=== PATIENT | female | born 1985 | race Caucasian/White ===

== ENCOUNTER 2017-02-11 11:38 | Emergency (ER) | payer OTHER ==
[~2017-02-11] VITALS: Ht 165.1 cm; Wt 68.0 kg
[~2017-02-11 11:38] MED LIST: CALNA PO; CEPHALEXIN250 MG/51 OR; CLEOCIN150 MG OR; CLINDAMYCIN150 MG OR; DEP0PROVERA IM; DEPO-PROVER150 MG/ML IM; FLEXERIL PO; FLEXERIL5 M1 PO; FOLIC ACID1 MG PO; HYDROCO/APAP1 TA8; LORTAB5 PO; NAPROSYN500 MG PO; NO MEDS; ORTHO-NOVUM1 TA1 OR; PEPCID20 MG PO; PERI-COLACE1 TAB PO; PREDNISONE20 MG OR; PROAIR HFA IN; TRAMADOL HCL50 MG PO; ULTRAM50 M1 OR; ULTRAM50 MG OR; ZOFRAN4 M1 OR; ZPAK PO
[2017-02-11] MEDS ORDERED: ULTRAM50 M1 PO (12:35)
[2017-02-11] MEDS ORDERED: CLEOCIN300 MG PO (12:35)
[2017-02-11 12:46] VITALS: BP 113/80
== END 2017-02-11 12:46 | disposition home or self-care (01) | DRG 159 ==
LOC: ED 11:38
DX: K04.7 Periapical abscess without sinus (principal); K08.89 Other specified disorders of teeth and supporting structures

== ENCOUNTER 2017-06-14 08:46 | Emergency (ER) | payer SELFPAY ==
[~2017-06-14] VITALS: Ht 165.1 cm; Wt 63.0 kg
[~2017-06-14 08:46] MED LIST changes: +CLEOCIN300 MG PO; +ULTRAM50 M1 PO
[2017-06-14] MEDS ORDERED: GABAPENTIN100 MG PO (09:01)
[2017-06-14] MEDS ORDERED: CELEBREX100 M1 PO (09:01)
[2017-06-14] MEDS ORDERED: ROBAXIN-750750 MG PO (09:01)
[2017-06-14 11:11] VITALS: BP 123/80
[2017-06-14] MEDS ORDERED: CYCLOBENZAPR5 MG PO (11:13)
[2017-06-14] MEDS ORDERED: MOTRIN400 MG PO (11:14)
== END 2017-06-14 11:18 | disposition home or self-care (01) | DRG 552 ==
LOC: ED 08:46
DX: M54.5 Low back pain (principal); M25.551 Pain in right hip; X50.0XXA Overexertion from strenuous movement or load, initial encounter; Y92.009 Unspecified place in unspecified non-institutional (private) residence as the place of occurrence of the external cause

== ENCOUNTER → 2018-06-14 | Outpatient (REF) | payer OTHER ==
[~2018-06-14] MED LIST changes: +CELEBREX100 M1 PO; +CYCLOBENZAPR5 MG PO; +GABAPENTIN100 MG PO; +MOTRIN400 MG PO; +ROBAXIN-750750 MG PO
[2018-06-14 08:57] LABS: HEMATOCRIT 38.6 % (37.0-47.0); HEMOGLOBIN 12.6 g/dl (12.0-16.0); IMMATURE GRANULOCYTES 0.5 % (0.0-5.0); MEAN CORPUSCULAR HGB 31.7 pG CALC (26.0-32.0); MEAN CORPUSCULAR HGB CONC 32.6 g/L CALC (32.0-36.0); NEUT# 5.39 thou/uL (2.00-7.15); RED BLOOD COUNT 3.98 mill/uL (4.20-5.60); RED CELL DISTRI WIDTH 12.8 % (11.5-15.5)
== END | disposition home or self-care (01) ==
LOC: ULTRASND 08:13 → DI 17:00
PROVIDERS: ATTEND Internal Medicine Cardiovascular Disease
DX: I20.8 Other forms of angina pectoris (principal); N83.202 Unspecified ovarian cyst, left side; N92.1 Excessive and frequent menstruation with irregular cycle

== ENCOUNTER 2018-07-09 07:18 | Emergency (ER) | payer OTHER ==
[~2018-07-09] VITALS: Ht 165.1 cm; Wt 65.9 kg
[2018-07-09 07:54] LABS: HEMATOCRIT 37.9 % (37.0-47.0); HEMOGLOBIN 12.3 g/dl (12.0-16.0); IMMATURE GRANULOCYTES 0.3 % (0.0-5.0); MEAN CELL VOLUME 96.7 fL CALC (80.0-100.0); MEAN CORPUSCULAR HGB 31.4 pG CALC (26.0-32.0); MEAN CORPUSCULAR HGB CONC 32.5 g/L CALC (32.0-36.0); NEUT# 3.87 thou/uL (2.00-7.15); RED BLOOD COUNT 3.92 mill/uL (4.20-5.60); RED CELL DISTRI WIDTH 12.8 % (11.5-15.5)
[2018-07-09 08:13] LABS: ANION GAP 13 (6-22 (CALC)); BUN 21 mg/dL (7-17); BUN/CREATININE RATIO 35 (12-20 (CALC)); CARBON DIOXIDE 27 mmol/l (22-30); CHLORIDE 106 mmol/l (95-108); CREATININE 0.6 mg/dL (0.5-1.0); GFR > 60 ML/MIN (>=60 (CALC)); GFR FOR AFR.AMER. > 60 ML/MIN (>=60 (CALC)); POTASSIUM 4.3 mmol/l (3.5-5.1); SODIUM 141 mmol/l (137-146)
[2018-07-09 09:12] VITALS: BP 110/73
== END 2018-07-09 09:12 | disposition home or self-care (01) ==
LOC: ED 07:18
PROVIDERS: Family Medicine
DX: R07.89 Other chest pain (principal); F17.200 Nicotine dependence, unspecified, uncomplicated

== ENCOUNTER 2020-10-25 14:41 | Emergency (ER) | payer BC ==
[~2020-10-25] VITALS: Ht 165.1 cm; Wt 63.0 kg
[2020-10-25] MEDS ORDERED: FOLIC ACID1 M1 PO (15:38)
[2020-10-25] MEDS ORDERED: AMITRIPTYLIN50 MG PO (15:38)
[2020-10-25] MEDS ORDERED: HYDROXYZ HCL10 MG PO (15:38)
[2020-10-25] MEDS ORDERED: KETOROLAC10 MG PO (15:39)
[2020-10-25] MEDS ORDERED: LEFLUNOMIDE20 MG PO (15:41)
[2020-10-25] MEDS ORDERED: IMITREX100 MG PO (15:42)
[2020-10-25] MEDS ORDERED: METHOCARBAMOL500 MG PO (15:43)
[2020-10-25] MEDS ORDERED: GABAPENTIN600 MG PO (15:45)
[2020-10-25] MEDS ORDERED: TRAMADOL HCL50 MG PO (15:45)
[2020-10-25] MEDS ORDERED: CYCLOBENZAPRINE10 MG PO (17:03)
[2020-10-25] MEDS ORDERED: NAPROXEN500 MG PO (17:03)
[2020-10-25 17:20] VITALS: BP 118/84
== END 2020-10-25 17:20 | disposition home or self-care (01) | DRG 552 ==
LOC: ED 14:41
DX: S13.4XXA Sprain of ligaments of cervical spine, initial encounter (principal); F17.210 Nicotine dependence, cigarettes, uncomplicated; X58.XXXA Exposure to other specified factors, initial encounter

== ENCOUNTER 2021-06-16 08:44 | Emergency (ER) | payer BC ==
[~2021-06-16] VITALS: Ht 165.1 cm; Wt 70.0 kg
[~2021-06-16 08:44] MED LIST changes: +AMITRIPTYLIN50 MG PO; +CYCLOBENZAPRINE10 MG PO; +FOLIC ACID1 M1 PO; +GABAPENTIN600 MG PO; +HYDROXYZ HCL10 MG PO; +IMITREX100 MG PO; +KETOROLAC10 MG PO; +LEFLUNOMIDE20 MG PO; +METHOCARBAMOL500 MG PO; +NAPROXEN500 MG PO
[2021-06-16] MEDS ORDERED: MOTRIN800 MG PO (09:41)
[2021-06-16] MEDS ORDERED: CLEOCIN300 MG PO (09:41)
[2021-06-16 09:48] VITALS: BP 118/65
== END 2021-06-16 09:49 | disposition home or self-care (01) | DRG 159 ==
LOC: ED 08:44
DX: K04.7 Periapical abscess without sinus (principal); R59.0 Localized enlarged lymph nodes; M06.9 Rheumatoid arthritis, unspecified; F17.210 Nicotine dependence, cigarettes, uncomplicated

== ENCOUNTER 2023-03-10 12:08 | Emergency (ER) | payer MEDICAID ==
[~2023-03-10] VITALS: Ht 165.1 cm; Wt 57.0 kg
[2023-03-10] VITALS (8 sets, daily range): BP systolic 109–121; BP diastolic 74–85
[~2023-03-10 12:08] MED LIST changes: +MOTRIN800 MG PO
[2023-03-10 12:31] LABS: BASO% 0.1 % (0-3); EOS% 1.7 % (0-8); HEMATOCRIT 38.6 % (37.0-47.0); HEMOGLOBIN 12.4 g/dl (12.0-16.0); IMMATURE GRANULOCYTES 0.1 % (0.0-5.0); LYMPH% 4.3 % (15-41); MEAN CELL VOLUME 97.7 fL CALC (80.0-100.0); MEAN CORPUSCULAR HGB 31.4 pG CALC (26.0-32.0); MEAN CORPUSCULAR HGB CONC 32.1 g/dL CAL (32.0-36.0); MONO% 3.7 % (2-13); NEUT# 13.51 thou/uL (2.00-7.15); NEUT% 90.1 % (42-76); RED BLOOD COUNT 3.95 mill/uL (4.20-5.60); RED CELL DISTRI WIDTH 12.4 % (11.5-15.5)
[2023-03-10 12:43] LABS: ALBUMIN 3.9 g/dL (3.2-5.0); ALKALINE PHOSPHATASE 43 u/l (38-126); BUN 20 mg/dL (7-17); BUN/CREATININE RATIO 28 (12-20 (CALC)); CHLORIDE 110 mmol/l (95-108); CREATININE 0.7 mg/dL (0.5-1.0); GFR FOR AFR.AMER. > 60 ML/MIN (>=60 (CALC)); GFR OTHER RACES > 60 ML/MIN (>=60 (CALC)); LIPASE 99 u/l (23-300); POTASSIUM 4.4 mmol/l (3.5-5.1); SGOT/AST 20 u/l (14-36); SODIUM 141 mmol/l (137-146); TOTAL PROTEIN 6.8 g/dL (6.3-8.2)
[2023-03-10 12:44] LABS: ANION GAP 11 (6-22 (CALC)); BILIRUBIN, TOTAL 0.4 mg/dL (0.02-1.3); CARBON DIOXIDE 24 mmol/l (22-30)
[2023-03-10 14:06] LABS: URINE BILIRUBIN - DIPSTICK NEGATIVE (NEGATIVE); URINE BLOOD DIPSTICK NEGATIVE (NEGATIVE); URINE COLOR YELLOW; URINE GLUCOSE - DIPSTICK NEGATIVE (NEGATIVE); URINE KETONE NEGATIVE (NEGATIVE); URINE PH 6.5 (4.5-8.0); URINE PROTEIN - DIPSTICK NEGATIVE (NEG-TRACE); URINE SPECIFIC GRAVITY <=1.005; URINE UROBILINOGEN - DIPSTICK 0.2 E.U./dL (0.2)
[2023-03-10 14:09] LABS: URINE LEUK ESTERASE SMALL (NEGATIVE); URINE NITRITE - DIPSTICK NEGATIVE (Negative)
[2023-03-10 14:18] LABS: URINE SQUAMOUS EPITHELIAL CELL MANY EPI/hpf (0-FEW)
[2023-03-10] MEDS ORDERED: PROTONIX40 M2 PO (15:16)
[2023-03-10] MEDS ORDERED: DICYCLOMINE10 MG PO (15:16)
[2023-03-10] MEDS ORDERED: MACROBID100 M1 PO (15:16)
[2023-03-10] MEDS ORDERED: CONSTULOSE10 GM/15 M PO (15:16)
== END 2023-03-10 15:34 | disposition home or self-care (01) ==
LOC: ED 12:08
PROVIDERS: Family Medicine
DX: R11.2 Nausea with vomiting, unspecified (principal); F17.200 Nicotine dependence, unspecified, uncomplicated; Z20.822 Contact with and (suspected) exposure to COVID-19
CPT/HCPCS: Q9967

== ENCOUNTER 2024-11-21 07:41 | Emergency (ER) | payer SELFPAY ==
[~2024-11-21] VITALS: Ht 165.1 cm; Wt 59.0 kg
[2024-11-21] VITALS (9 sets, daily range): BP systolic 115–129; BP diastolic 82–101
[~2024-11-21 07:41] MED LIST changes: +CONSTULOSE10 GM/15 M PO; +DICYCLOMINE10 MG PO; +MACROBID100 M1 PO; +PROTONIX40 M2 PO
[2024-11-21] MEDS ORDERED: METHOCARBAMOL 500 MG/TAB PO ONE (08:05)
[2024-11-21] MEDS ORDERED: KETOROLAC TROMETHAMINE 30 MG/ML SDV IV ONE (08:05)
[2024-11-21 08:21] LABS: BASO% 0.6 % (0-3); EOS% 6.9 % (0-8); HEMATOCRIT 36.8 % (37.0-47.0); HEMOGLOBIN 12.3 g/dl (12.0-16.0); IMMATURE GRANULOCYTES 0.2 % (0.0-5.0); LYMPH% 23.9 % (15-41); MEAN CELL VOLUME 96.3 fL CALC (80.0-100.0); MEAN CORPUSCULAR HGB 32.2 pG CALC (26.0-32.0); MEAN CORPUSCULAR HGB CONC 33.4 g/dL CAL (32.0-36.0); MONO% 6.7 % (2-13); NEUT# 4.99 thou/uL (2.00-7.15); NEUT% 61.7 % (42-76); RED BLOOD COUNT 3.82 mill/uL (4.20-5.60); RED CELL DISTRI WIDTH 12.4 % (11.5-15.5)
[2024-11-21 08:34] LABS: CREATININE 0.6 mg/dL (0.5-1.0); POTASSIUM 4.3 mmol/l (3.5-5.1)
[2024-11-21] MEDS ORDERED: METHOCARBAMOL500 MG PO (09:52)
[2024-11-21] MEDS ORDERED: HYDROcodone 5 MG/Acetaminophen 325 MG/COMBO PO ONE (09:55)
== END 2024-11-21 10:07 | disposition home or self-care (01) | DRG 556 ==
LOC: ED 07:41
PROVIDERS: Family Medicine
DX: M79.18 Myalgia, other site (principal); M06.9 Rheumatoid arthritis, unspecified; F17.200 Nicotine dependence, unspecified, uncomplicated
CPT/HCPCS: Q9967